=== PATIENT | female | born 1990 | race African-American/Black ===

== ENCOUNTER 2016-12-13 14:51 | Emergency (ER) | payer MEDICAID ==
[2016-12-13] MEDS ORDERED: CLINDAMYCIN 600 MG/4 ML VIAL ONE (18:07)
== END 2016-12-13 19:02 | disposition home or self-care (01) ==
LOC: ER 14:51
DX: N30.90 Cystitis, unspecified without hematuria (principal); K08.89 Other specified disorders of teeth and supporting structures; F17.210 Nicotine dependence, cigarettes, uncomplicated
CPT/HCPCS: 36415; 80053; 81001; 83690; 84703; 85025; 87077; 87088; 87186; 96372